=== PATIENT | male | born 1980 | race Caucasian/White ===

== ENCOUNTER 2024-01-16 04:12 | Emergency (ER) | payer OTHER, BC, SELFPAY ==
[2024-01-16 04:15] VITALS: BP 160/96; PULSE 89; TEMP 36.5; O2SAT 99; BMI 32.7
--- NOTE | 2024-01-16 04:21 | ECG_ITS ---
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
--- NOTE | 2024-01-16 04:29 | ED.CHESTPAI1 ---
HPI - Chest Pain General Chief Complaint: Chest Pain Stated Complaint: upper extremity pain right chest Time Seen by Provider: 01/16/24 04:24 History of Present Illness HPI narrative: presents complaining of chest pain. Chest pain left chest that worsens with use of the left arm. pain radiates into his back. No associated nausea. Feels short of breath when pain increases. Does not want to raise his left arm because the pain will increase. no fever or injury family history of CAD Related Data Home Medications ?Medication ?Instructions ?Recorded ?Confirmed alprazolam 0.25 mg tablet 0.25 mg PO anxiety 01/16/24 atorvastatin 40 mg tablet 40 mg PO DAILY 01/16/24 01/16/24 buprenorphine 8 mg-naloxone 2 mg tab sublingual 01/16/24 sublingual tablet dbbptkhk-cbqalpqpx-vdonxyepg 3.5 otic (ear) 01/16/24 mg/mL-10,000 unit/mL-1 % ear solution pantoprazole 20 mg tablet,delayed 20 mg PO Q12H 01/16/24 01/16/24 release sulfamethoxazole 800 tab 01/16/24 mg-trimethoprim 160 mg tablet trazodone 100 mg tablet 100 mg PO BEDTIME 01/16/24 01/16/24 Allergies Allergy/AdvReac Type Severity Reaction Status Date / Time amoxicillin Allergy Intermediate Verified 01/16/24 04:20 Review of Systems ROS Status of ROS 10 or more systems reviewed and unremarkable except as noted in history and below Exam Constitutional Vital Signs, click to edit/add: Last Vital Signs Temp 97.7 F 01/16/24 04:15 Pulse 89 01/16/24 04:15 Resp 22 H 01/16/24 04:15 BP 160/96 H 01/16/24 04:15 Pulse Ox 95 01/16/24 04:30 O2 Del Method Room Air 01/16/24 04:30 Common normals: average body habitus, oriented x3, no limitations, healthy appearing and well nourished [facility] Common normals: normocephalic and head/scalp atraumatic Chest Other: left midaxillary chest wall tenderness Respiratory Common normals: normal respiratory effort, no retractions, no use of accessory muscles and clear to auscultation bilaterally Cardio Common normals: regular rate, regular rhythm, S1 normal heart sound and S2 normal heart sound GI Common normals: Normal to inspection, nondistended, normoactive bowel sounds present, soft to palpation and non-tender Extremity Common normals: normal to inspection and full ROM Neuro Common normals: oriented x3, CN's II-XII intact bilaterally, moves all extremities and no focal motor deficits Psych Appearance: grossly normal Course Vital Signs Vital signs: Vital Signs Temperature 97.7 F 01/16/24 04:15 Pulse Rate 89 01/16/24 04:15 Respiratory Rate 22 H 01/16/24 04:15 Blood Pressure 160/96 H 01/16/24 04:15 Pulse Oximetry 99 01/16/24 04:15 Oxygen Delivery Method Room Air 01/16/24 04:15 Temperature 97.7 F 01/16/24 04:15 Pulse Rate 89 01/16/24 04:15 Respiratory Rate 22 H 01/16/24 04:15 Blood Pressure 160/96 H 01/16/24 04:15 Pulse Oximetry 95 01/16/24 04:30 Oxygen Delivery Method Room Air 01/16/24 04:30 MDM - Chest Pain MDM Narrative Medical decision making narrative: patient presents complaining of pain of his left midaxillary chest that radiates to his scapula. No dyspnea. Pain positional and aggravated by use of his arm. chest xray neg. troponin neg. EKG with incomplete RBBB. NSR. troponin neg. d-dimer elevated. Given Toradol which offered no relief. Order solumedrol and ativan. CTA chest pending. Care transferred to oncoming physician at change of shift Lab Data Labs: Lab Results 01/16/24 Range/Units 05:00 WBC 9.8 (4.0-11.0) 10^3/uL RBC 6.82 H (4.70-6.10) 10^6/uL Hgb 19.1 H (14.0-18.0) g/dL Hct 58.6 H (42.0-54.0) % MCV 85.9 (80.0-94.0) fL MCH 28.0 (25.9-34.0) pg MCHC 32.6 (29.9-35.2) g/dL RDW 17.6 H (11.0-15.0) % Plt Count 355 (150-450) 10^3/uL MPV 10.1 (9.5-13.5) fL Neut % (Auto) 72.5 (43.0-75.0) % Lymph % (Auto) 11.7 L (20.5-60.0) % [place] % (Auto) 5.1 (1.7-12.0) % Eos % (Auto) 7.1 H (0.9-7.0) % Baso % (Auto) 1.4 (0.2-2.0) % Neut # (Auto) 7.1 H (1.4-6.5) 10^3/uL Lymph # (Auto) 1.2 (1.2-3.8) 10^3/uL [place] # (Auto) 0.5 (0.3-0.8) 10^3/uL Eos # (Auto) 0.7 (0.0-0.7) 10^3/uL Baso # (Auto) 0.1 (0.0-0.1) 10^3/uL Abs Immat Gran (auto) 0.22 H (0.00-0.03) 10^3/uL Imm/Tot Granulo (auto) 2.2 H (0.0-0.5) % D-Dimer 0.67 H* (<=0.59) mg/L FEU Sodium 138 (136-145) mmol/L Potassium 4.7 (3.5-5.1) mmol/L Chloride 102 (98-107) mmol/L Carbon Dioxide 28.6 (21.0-32.0) mmol/L Anion Gap 12.1 BUN 9.0 (7.0-18.0) mg/dL Creatinine 1.32 H (0.70-1.30) mg/dL Est GFR ( Amer) >60 (>=60) Est GFR (Non-Af Amer) 60 (>=60) BUN/Creatinine Ratio 6.8 Glucose 97 (74-106) mg/dL Calcium 9.3 (8.5-10.1) mg/dL Troponin I High Sens 13.2 (4.0-76.1) pg/mL Imaging Data Chest x-ray: Radiologist's impression: ITS Impressions Chest X-Ray 01/16/24 04:32 IMPRESSION: No acute abnormality. Electronically authenticated by: YARON SCOTT Date: 01/16/2024 05:41 Discharge Plan Discharge Chief Complaint: Chest Pain Clinical Impression: Atypical chest pain Patient Disposition: Still a Patient Prescriptions / Home Meds: No Action atorvastatin 40 mg tablet 40 mg PO DAILY jmheyrxb-rqoeglary-RX 3.5-10,000-1 mg/mL-unit/mL-% solution OTIC (EAR) sulfamethoxazole-trimethoprim 800-160 mg tablet pantoprazole 20 mg tablet,delayed release (DR/EC) 20 mg PO Q12H alprazolam 0.25 mg tablet 0.25 mg PO trazodone 100 mg tablet 100 mg PO BEDTIME buprenorphine-naloxone 8-2 mg tablet, sublingual SUBLINGUAL Print Language: Com[place]an Referrals: Physician,Non-Staff, MD [Primary Care Provider] - 1 week
[2024-01-16 04:30] VITALS: O2SAT 95
--- NOTE | 2024-01-16 04:32 | XR_ITS ---
The [address] [address] Patient Name: LUIS CORRAL MRN: [id number] date: 1980 Sex: M Assigned Patient Location: ER Current Patient Location: ER Accession/Order Number: [id number] Exam Date: 01/16/2024 05:30 Report Date: 01/16/2024 05:41 At the request of: TRISHA REAL Procedure: XR chest 1V CLINICAL HISTORY: Chest pain COMPARISON: None FINDINGS: Portable AP view of the chest obtained. Cardiomediastinal silhouette is normal. Lungs are clear, no evidence of infiltrate, suspicious nodule, or mass. No evidence of significant pleural fluid on this portable projection. No acute bony abnormality. XR/XR chest 1V IMPRESSION: No acute abnormality. Electronically authenticated by: YARON SCOTT Date: 01/16/2024 05:41
[2024-01-16] MEDS: KETOROLAC TROMETHAMINE 30 MG/ML VIAL IVP (05:03)
[2024-01-16 05:20] LABS: Basophils Absolute Auto 0.1 10^3/uL (0.0-0.1); Basophils Percent Auto 1.4 % (0.2-2.0); Eosinophils Absolute Auto 0.7 10^3/uL (0.0-0.7); Eosinophils Percent Auto 7.1 % (0.9-7.0); Hematocrit 58.6 % (42.0-54.0); Hemoglobin 19.1 g/dL (14.0-18.0); Immature Granulocytes Abs Auto 0.22 10^3/uL (0.00-0.03); Immature Granulocytes Pct Auto 2.2 % (0.0-0.5); Lymphocytes Absolute Auto 1.2 10^3/uL (1.2-3.8); Lymphocytes Percent Auto 11.7 % (20.5-60.0); Mean Corpuscular HGB Conc 32.6 g/dL (29.9-35.2); Mean Corpuscular Volume 85.9 fL (80.0-94.0); Mean Platelet Volume 10.1 fL (9.5-13.5); Monocytes Absolute Auto 0.5 10^3/uL (0.3-0.8); Monocytes Percent Auto 5.1 % (1.7-12.0); Neutrophils Absolute Auto 7.1 10^3/uL (1.4-6.5); Neutrophils Percent Auto 72.5 % (43.0-75.0); Platelet Count 355 10^3/uL (150-450); Red Blood Count 6.82 10^6/uL (4.70-6.10); Red Cell Distribution Width 17.6 % (11.0-15.0); White Blood Count 9.8 10^3/uL (4.0-11.0)
--- NOTE | 2024-01-16 05:35 | PC.NURSE ---
Patient to ED with c/o left upper chest pain that radiates into upper back between shoulder blades. Pain started suddenly this morning while he was up brushing his teeth. 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 He did have some chest pains yesterday, but they were not severe. Pain today is 10/10. Pain increases when he moves, specifically when he lifts his arms.
[2024-01-16 05:37] LABS: Anion Gap 12.1; BUN Creatinine Ratio 6.8; Calcium 9.3 mg/dL (8.5-10.1); Carbon Dioxide 28.6 mmol/L (21.0-32.0); Chloride 102 mmol/L (98-107); Estimated GFR (African America >60 (>=60); Estimated GFR (Non-African Ame 60 (>=60); Glucose 97 mg/dL (74-106); Potassium 4.7 mmol/L (3.5-5.1); Sodium 138 mmol/L (136-145); Troponin I High Sensitivity 13.2 pg/mL (4.0-76.1)
[2024-01-16 05:53] LABS: D Dimer 0.67 mg/L FEU (<=0.59)
--- NOTE | 2024-01-16 05:59 | CT_ITS ---
[address] [address] Patient Name: LUIS CORRAL MRN: [id number] date: 1980 Sex: M Assigned Patient Location: ER Current Patient Location: ED.MAIN Accession/Order Number: [id number] Exam Date: 01/16/2024 06:39 Report Date: 01/16/2024 07:28 At the request of: TRISHA REAL Procedure: CT angio chest EXAMINATION: CT angio chest HISTORY: chest pain radiating into back COMPARISON: XR chest 01/16/2024 TECHNIQUE: Multi-planar CT images were created with IV contrast. Axial, Coronal, and Sagittal images. Dose reduction techniques were achieved by using automated exposure control and/or adjustment of mA and/or kV according to patient size and/or use of iterative reconstruction technique. 3-D reconstruction was performed on a separate workstation. FINDINGS: VASCULATURE: Suspect nonocclusive emboli within left lower lobe medial basilar segmental artery. LUNGS: No visible pulmonary disease. PLEURA: No mass, effusion, or pneumothorax. KIMBERLEE: No mass or adenopathy. MEDIASTINUM: No mass or adenopathy. CARDIAC: No enlargement, pericardial effusion, or pericardial thickening. AORTA: No aneurysm or dissection. CHEST WALL: No mass or axillary adenopathy. BONES: No bone lesion or fracture. LIMITED ABDOMEN: No suspicious findings. Limited images of the upper abdomen. OTHER: Negative. CT/CT angio chest IMPRESSION: 1. Suspect small nonocclusive pulmonary embolus within left lower lobe medial basilar segmental artery. There may be additional small emboli, or this could represent artifact, but I suspect this embolus to be real without additional significant emboli. Study is limited by significant metallic streak artifact caused by cardiac pacer leads, clips, and arms along patient's side rather than above the patient's head. Before patient is placed long-term on a blood thinner a follow-up CTA chest should be performed to confirm pulmonary emboli. 2. No pulmonary infiltrates, pneumothorax, pleural effusion. Electronically authenticated by: DYLAN RAZO Date: 01/16/2024 07:28
[2024-01-16] MEDS: METHYLPREDNISOLONE SOD SUCC PF 125 MG/2 ML VIAL IVP (06:13)
[2024-01-16] MEDS: LORAZEPAM 2 MG/ML 1 ML VIAL 1 MG IV (06:14)
--- NOTE | 2024-01-16 06:37 | PC.NURSE ---
Patient is medicated at this time. He is resting in bed with family at bedside. He is updated on order for CTA and why it was ordered. Patient explains that he has been having shortness of breath intermittently for the past few days, especially at night. He will wake up and feel like he cannot catch his breath.
[2024-01-16 06:38] VITALS: BP 161/84; PULSE 78; O2SAT 98
--- NOTE | 2024-01-16 08:01 | ED.CHESTPAI1 ---
HPI - Chest Pain General Chief Complaint: Chest Pain Stated Complaint: upper extremity pain right chest Time Seen by Provider: 01/16/24 04:24 History of Present Illness HPI narrative: 43-year-old male presented to the emergency department and was initially seen by Dr. Tamez and signed out to me after discussing the case with him thoroughly. Please see his full history and physical exam. Related Data Home Medications ?Medication ?Instructions ?Recorded ?Confirmed alprazolam 0.25 mg tablet 0.25 mg PO anxiety 01/16/24 atorvastatin 40 mg tablet 40 mg PO DAILY 01/16/24 01/16/24 buprenorphine 8 mg-naloxone 2 mg tab sublingual 01/16/24 sublingual tablet fdlojxgx-ohdbbulmy-fmslqfmsz 3.5 otic (ear) 01/16/24 mg/mL-10,000 unit/mL-1 % ear solution pantoprazole 20 mg tablet,delayed 20 mg PO Q12H 01/16/24 01/16/24 release sulfamethoxazole 800 tab 01/16/24 mg-trimethoprim 160 mg tablet trazodone 100 mg tablet 100 mg PO BEDTIME 01/16/24 01/16/24 Previous Rx's ?Medication ?Instructions ?Recorded apixaban 5 mg (74 tabs) tablets in 5 mg PO BID #74 ea 01/16/24 a dose pack ([place] DVT-PE Treat 30D Start) Allergies Allergy/AdvReac Type Severity Reaction Status Date / Time amoxicillin Allergy Intermediate Verified 01/16/24 04:20 Exam Constitutional Vital Signs, click to edit/add: Last Vital Signs Temp 97.7 F 01/16/24 04:15 Pulse 78 01/16/24 06:38 Resp 18 01/16/24 06:38 BP 161/84 H 01/16/24 06:38 Pulse Ox 98 01/16/24 06:38 O2 Del Method Room Air 01/16/24 04:30 Course Vital Signs Vital signs: Vital Signs Temperature 97.7 F 01/16/24 04:15 Pulse Rate 89 01/16/24 04:15 Respiratory Rate 22 H 01/16/24 04:15 Blood Pressure 160/96 H 01/16/24 04:15 Pulse Oximetry 99 01/16/24 04:15 Oxygen Delivery Method Room Air 01/16/24 04:15 Temperature 97.7 F 01/16/24 04:15 Pulse Rate 78 01/16/24 06:38 Respiratory Rate 18 01/16/24 06:38 Blood Pressure 161/84 H 01/16/24 06:38 Pulse Oximetry 98 01/16/24 06:38 Oxygen Delivery Method Room Air 01/16/24 04:30 MDM - Chest Pain MDM Narrative Medical decision making narrative: The D-dimer was elevated and a CAT scan of the chest was ordered. This shows a small distal nonocclusive pulmonary embolism. Case is discussed with Dr. Rehman we have agreed that the patient does not need to be admitted to the hospital but will be placed on Eliquis and follow-up with him in the office. Findings are discussed thoroughly with the patient and his and the importance of taking the blood thinner was discussed thoroughly. He was instructed not to take anti-inflammatories such as Motrin, Advil, ibuprofen. Treatment diagnosis and follow-up were discussed thoroughly. Differential Diagnosis Differential diagnosis: Likely pneumothorax, unstable angina pectoris, atypical chest pain, st elevation myocardial infarction, chest pain and other (Pulmonary embolism) Lab Data Attestation: I reviewed the patient's lab results. Labs: Lab Results 01/16/24 Range/Units 05:00 WBC 9.8 (4.0-11.0) 10^3/uL RBC 6.82 H (4.70-6.10) 10^6/uL Hgb 19.1 H (14.0-18.0) g/dL Hct 58.6 H (42.0-54.0) % MCV 85.9 (80.0-94.0) fL MCH 28.0 (25.9-34.0) pg MCHC 32.6 (29.9-35.2) g/dL RDW 17.6 H (11.0-15.0) % Plt Count 355 (150-450) 10^3/uL MPV 10.1 (9.5-13.5) fL Neut % (Auto) 72.5 (43.0-75.0) % Lymph % (Auto) 11.7 L (20.5-60.0) % [place] % (Auto) 5.1 (1.7-12.0) % Eos % (Auto) 7.1 H (0.9-7.0) % Baso % (Auto) 1.4 (0.2-2.0) % Neut # (Auto) 7.1 H (1.4-6.5) 10^3/uL Lymph # (Auto) 1.2 (1.2-3.8) 10^3/uL [place] # (Auto) 0.5 (0.3-0.8) 10^3/uL Eos # (Auto) 0.7 (0.0-0.7) 10^3/uL Baso # (Auto) 0.1 (0.0-0.1) 10^3/uL Abs Immat Gran (auto) 0.22 H (0.00-0.03) 10^3/uL Imm/Tot Granulo (auto) 2.2 H (0.0-0.5) % D-Dimer 0.67 H* (<=0.59) mg/L FEU Sodium 138 (136-145) mmol/L Potassium 4.7 (3.5-5.1) mmol/L Chloride 102 (98-107) mmol/L Carbon Dioxide 28.6 (21.0-32.0) mmol/L Anion Gap 12.1 BUN 9.0 (7.0-18.0) mg/dL Creatinine 1.32 H (0.70-1.30) mg/dL Est GFR ( Amer) >60 (>=60) Est GFR (Non-Af Amer) 60 (>=60) BUN/Creatinine Ratio 6.8 Glucose 97 (74-106) mg/dL Calcium 9.3 (8.5-10.1) mg/dL Troponin I High Sens 13.2 (4.0-76.1) pg/mL Imaging Data CT scan - chest: Radiologist's impression: ITS Impressions Chest X-Ray 01/16/24 04:32 IMPRESSION: No acute abnormality. Electronically authenticated by: YARON SCOTT Date: 01/16/2024 05:41 Chest CTA 01/16/24 05:59 IMPRESSION: 1. Suspect small nonocclusive pulmonary embolus within left lower lobe medial basilar segmental artery. There may be additional small emboli, or this could represent artifact, but I suspect this embolus to be real without additional significant emboli. Study is limited by significant metallic streak artifact caused by cardiac pacer leads, clips, and arms along patient's side rather than above the patient's head. Before patient is placed long-term on a blood thinner a follow-up CTA chest should be performed to confirm pulmonary emboli. 2. No pulmonary infiltrates, pneumothorax, pleural effusion. Electronically authenticated by: DYLAN RAZO Date: 01/16/2024 07:28 Heart Score History: Slightly/Non-Suspicious ECG: Normal Age: <45 years Risk Factors: 1 or 2 Risk Factors Troponin: <Normal Limit Total Heart Score Recommendations & Risks:: 1 Discharge Plan Discharge Stand Alone Forms: Portal Instructions Chief Complaint: Chest Pain Clinical Impression: Pulmonary embolism Patient Disposition: Home, Self-Care Time of Disposition Decision: 07:59 Condition: Good Mode of Transportation: Private Vehicle Prescriptions / Home Meds: New Eliquis DVT-PE Treat 30D Start 5 mg (74 tabs) tablets,dose pack 5 mg PO BID Qty: 74 0RF No Action atorvastatin 40 mg tablet 40 mg PO DAILY neeiatfd-ndiebbtkr-HT 3.5-10,000-1 mg/mL-unit/mL-% solution OTIC (EAR) sulfamethoxazole-trimethoprim 800-160 mg tablet pantoprazole 20 mg tablet,delayed release (DR/EC) 20 mg PO Q12H alprazolam 0.25 mg tablet 0.25 mg PO trazodone 100 mg tablet 100 mg PO BEDTIME buprenorphine-naloxone 8-2 mg tablet, sublingual SUBLINGUAL Print Language: Kyrgyz Instructions: Pulmonary Embolism (ED), Blood Thinners (ED) Additional Instructions: Follow-up with Dr. Rehman, call today to make an appointment Referrals: Stuart Rehman DO [Physician] - 1 week Physician,Non-Staff, MD [Primary Care Provider] - 1 week
[2024-01-16] MEDS: APIXABAN 5 MG TABLET 10 MG PO (08:13)
[2024-01-16 08:16] VITALS: PULSE 88; O2SAT 98
== END 2024-01-16 08:18 | disposition home or self-care (01) ==
PROVIDERS: Internal Medicine; Emergency Provider Emergency Medicine
DX: I26.99 Other pulmonary embolism without acute cor pulmonale (principal); Z79.899 Other long term (current) drug therapy
CPT/HCPCS: 36415; 71045; 71275; 80048; 84484; 85025; 85378; 93005; 96374; 96375; 99285; J2919; Q9967

== ENCOUNTER 2024-02-15 16:14 | Outpatient (OUT) | payer OTHER, BC, SELFPAY ==
--- NOTE | 2024-02-15 16:22 | US_ITS ---
[address] [address] Patient Name: LUIS CORRAL MRN: [id number] date: 1980 Sex: M Assigned Patient Location: US Current Patient Location: Accession/Order Number: [id number] Exam Date: 02/15/2024 16:28 Report Date: 02/16/2024 07:01 At the request of: ZINA REHMAN Procedure: US venous doppler LE RT EXAM: US venous doppler LE RT HISTORY: other pulmonary embolism I2699, soft tissue disorder M7989 COMPARISON: None. TECHNIQUE: Grayscale, color and Doppler FINDINGS: Region: Right leg Thrombus: No deep vein thrombus. Echogenic thrombus identified in the superficial vein corresponding to the patient's palpable abnormality in the area of pain Flow: Absent flow corresponding to thrombus Compressibility: Noncompressibility corresponding to thrombus Augmentation: Normal augmentation of the deep system Other: Findings relayed to Dr. Rehman by the technologist at the time of exam US/US venous doppler LE RT IMPRESSION: Occlusive superficial vein thrombus corresponding to the patient's palpable lump No deep vein thrombus Electronically authenticated by: ELINA AVILA Date: 02/16/2024 07:01
== END 2024-02-15 16:15 | disposition home or self-care (01) ==
LOC: US 16:15
PROVIDERS: Visit Provider Internal Medicine
DX: I26.99 Other pulmonary embolism without acute cor pulmonale (principal); M79.89 Other specified soft tissue disorders; I82.811 Embolism and thrombosis of superficial veins of right lower extremity
CPT/HCPCS: 93971

== ENCOUNTER 2024-10-31 12:14 | Emergency (ER) | payer OTHER, BC, SELFPAY ==
[2024-10-31 12:25] VITALS: PULSE 78
[2024-10-31 12:26] VITALS: BP 176/97; PULSE 90; TEMP 36.7; O2SAT 98; BMI 32.7
--- NOTE | 2024-10-31 12:40 | US_ITS ---
[address] [address] Patient Name: LUIS CORRAL MRN: [id number] date: 1980 Sex: M Assigned Patient Location: ER Current Patient Location: ER Accession/Order Number: [id number] Exam Date: 10/31/2024 12:41 Report Date: 10/31/2024 14:39 At the request of: HANNAH TERRY Procedure: US venous doppler LE RT EXAM: US venous doppler LE RT HISTORY: thigh swelling COMPARISON: 02/15/2024 TECHNIQUE: Grayscale, color and Doppler FINDINGS: Region: Right leg Thrombus: None Flow: Normal Augmentation: Normal Compressibility: Normal Other: Multiple enlarged right inguinal lymph nodes the largest measuring 2.3 x 1.5 x 1.2 cm. Identified along the lateral thigh is a 15.7 x 6.8 x 3.8 cm area of heterogeneous hypoechogenicity small amount of color flow is observed US/US venous doppler LE RT IMPRESSION: No deep or superficial vein thrombus in the right thigh 15.7 cm lateral thigh mass, indeterminate, with right inguinal lymphadenopathy. CT or MRI without and with contrast is recommended for further characterization Electronically authenticated by: ELINA AVILA Date: 10/31/2024 14:39
[2024-10-31 13:04] LABS: Basophils Absolute Auto 0.2 10^3/uL (0.0-0.1); Eosinophils Absolute Auto 0.3 10^3/uL (0.0-0.7); Eosinophils Percent Auto 1.9 % (0.9-7.0); Hematocrit 50.9 % (42.0-54.0); Hemoglobin 16.8 g/dL (14.0-18.0); Immature Granulocytes Abs Auto 0.44 10^3/uL (0.00-0.03); Immature Granulocytes Pct Auto 2.5 % (0.0-0.5); Lymphocytes Absolute Auto 1.2 10^3/uL (1.2-3.8); Lymphocytes Percent Auto 6.5 % (20.5-60.0); Mean Corpuscular Hemoglobin 28.5 pg (25.9-34.0); Mean Corpuscular Volume 86.3 fL (80.0-94.0); Mean Platelet Volume 9.7 fL (9.5-13.5); Monocytes Absolute Auto 1.1 10^3/uL (0.3-0.8); Monocytes Percent Auto 6.3 % (1.7-12.0); Neutrophils Absolute Auto 14.4 10^3/uL (1.4-6.5); Neutrophils Percent Auto 81.8 % (43.0-75.0); Platelet Count 440 10^3/uL (150-450); White Blood Count 17.6 10^3/uL (4.0-11.0)
[2024-10-31 13:19] LABS: Partial Thromboplastin Time 26.1 sec (22.3-36.2)
[2024-10-31 13:20] LABS: Alanine Aminotransferase 81 U/L (16-63); Albumin Globulin Ratio 0.9; Albumin Level 3.3 g/dL (3.4-5.0); Alkaline Phosphatase 57 U/L (46-116); Anion Gap 11.4; Aspartate Amino Transferase 47 U/L (15-37); BUN Creatinine Ratio 6.5; Bilirubin Total 0.7 mg/dL (0.2-1.0); Carbon Dioxide 29.1 mmol/L (21.0-32.0); Chloride 102 mmol/L (98-107); Estimated GFR (African America >60 (>=60 mL/min/1.73m^2); Estimated GFR (Non-African Ame 56 (>=60 mL/min/1.73m^2); Globulin 3.7 g/dL; Glucose 87 mg/dL (74-106); Potassium 4.5 mmol/L (3.5-5.1); Sodium 138 mmol/L (136-145)
[2024-10-31 13:21] LABS: INR 1.09; Prothrombin Time 11.5 sec (9.0-11.6)
[2024-10-31] MEDS: KETOROLAC TROMETHAMINE 30 MG/ML VIAL 15 MG IVP (13:38)
[2024-10-31 13:48] VITALS: BP 164/86
[2024-10-31 13:54] LABS: Lactate/Lactic Acid 1.1 mmol/L (0.4-2.0)
--- NOTE | 2024-10-31 14:44 | CT_ITS ---
[address] [address] Patient Name: LUIS CORRAL MRN: [id number] date: 1980 Sex: M Assigned Patient Location: ER Current Patient Location: ER Accession/Order Number: [id number] Exam Date: 10/31/2024 15:00 Report Date: 10/31/2024 16:00 At the request of: HANNAH TERRY Procedure: CT femur RT wo/w con EXAM: CT femur RT wo/w con HISTORY: right thigh mass after testosterone injection right thigh mass with redness and warmth after testosterone injection 5 days ago. COMPARISON: Right lower extremity venous study 10/31/2024. TECHNIQUE: Multiple axial CT images of the right thigh was performed with and without IV contrast. 2-D coronal and sagittal reformations were submitted for review. Dose reduction techniques were achieved by using automated exposure control and/or adjustment of mA and/or kV according to patient size and/or use of iterative reconstruction technique. FINDINGS: There is intramuscular and fascial edema along the vastus lateralis, vastus intermedius and rectus femoris muscles along the anterior compartment of the right thigh. Intermediate density fluid collection without enhancement along the vastus lateralis muscle at the level of the proximal femoral diaphysis measuring 9.4 x 3.8 cm in cross-section extending 14.1 cm in craniocaudal dimension. No soft tissue gas. No radiopaque foreign body. A few prominent right inguinal lymph nodes. Urinary bladder and prostate gland appear unremarkable. Mild marginal spur involving the right hip. Right femoral head appears smooth. Right femur appears intact. No bony erosive/destructive changes. Alignment at the right knee joint appears preserved. No sizable knee joint effusion. CT/CT femur RT wo/w con IMPRESSION: 1. There is an intramuscular hematoma in the vastus lateralis muscle measuring up to 14.1 cm. Adjacent fascial edema is noted. Superimposed myositis/cellulitis is not excluded. No soft tissue gas. 2. No acute fracture. No CT signs of osteomyelitis. Electronically authenticated by: LETTY MARTÍNEZ Date: 10/31/2024 16:00
[2024-10-31] MEDS: DOXYCYCLINE HYCLATE 100 MG in 0.9 % SODIUM CHLORIDE 100 ML IV (15:15)
--- NOTE | 2024-11-01 07:08 | ED_ITS ---
HPI HPI - Extremity Injury (Lower) General Chief Complaint: Extremity Injury, Lower Stated Complaint: LOWER EXTREMITY SWELLING Time Seen by Provider: 10/31/24 12:40 Source: patient Mode of arrival: walk-in History of Present Illness HPI Narrative: The patient is a 44-year-old male coming to the ER after he had a right thigh injection of testosterone almost 5 days ago. Patient mentioned after the injection he started having swelling in the area and pain. According to him he usually gives himself testosterone injection with the same kind of medication and the same brand with the same dose. Patient have no fever no chills no other complaint of redness hotness or any other concerns No pain in his feet or any numbness or tingling No history of a fall or trauma Related Data Home Medications ?Medication ?Instructions ?Recorded ?Confirmed atorvastatin 40 mg tablet 40 mg PO DAILY 01/16/24 10/31/24 buprenorphine 8 mg-naloxone 2 mg tab sublingual 01/16/24 sublingual tablet pantoprazole 20 mg tablet,delayed 20 mg PO Q12H 01/16/24 10/31/24 release trazodone 100 mg tablet 100 mg PO BEDTIME 01/16/24 10/31/24 Previous Rx's ?Medication ?Instructions ?Recorded apixaban 5 mg (74 tabs) tablets in 5 mg PO BID #74 ea 01/16/24 a dose pack (Eliquis DVT-PE Treat 30D Start) acetaminophen 650 mg 650 mg PO Q8H PRN pain #20 tabs 10/31/24 tablet,extended release (Tylenol 8 Hour) doxycycline hyclate 100 mg capsule 100 mg PO BID 7 days #14 caps 10/31/24 methylprednisolone 4 mg tablets in 4 mg PO DAILY #21 ea 10/31/24 a dose pack (Medrol (Sav)) Allergies Allergy/AdvReac Type Severity Reaction Status Date / Time amoxicillin Allergy Intermediate Unknown Verified 10/31/24 12:26 Opioid HPI Opioid Management Most Recent Pain and Opioid Data: No Data to Display Review of Systems ROS Status of ROS 10 or more systems reviewed and unremark able except as noted in history and below PFSH PFSH Social History Little interest or pleasure in doing things: not at all Feeling down, depressed, or hopeless: not at all Exam Narrative Exam Narrative: Nurses notes and vital signs reviewed and patient is not hypoxic. Right lower extremity: At the thigh area mostly at the lateral aspect of the upper half of the thigh the patient have an area of induration no redness no hotness with mild tenderness on palpation he still have a good femoral pulse as well as good anterior tibial pulse and no vascular injury detected on exam General: Well-appearing and in no apparent distress. Skin: Warm, dry, no pallor noted. No rash. Head: Normocephalic, atraumatic. Neck: Supple, non-tender. Eye: Pupils are equal, round and EOMI. No scleral icterus. Ears, Nose, Mouth, and Throat: TM are clear, no nasal mucosal hypertrophy. Oral mucosa is moist, no posterior oropharynx erythema, uvula is mid-line Cardiovascular: Regular Rate and Rhythm without murmur, gallop or rub. Respiratory: No accessory muscle use or respiratory distress. Lungs are clear to auscultation, no wheezing, rales or rhonchi Chest Wall: no tenderness Back: No midline thoracic or lumbar vertebral tenderness. No CVA tenderness GI: Abdomen is soft, non-distended. Normal bowel sounds. No masses appreciated. No tenderness to palpation. No rebound, guarding, or rigidity noted. Neurological: A&O x4. No cranial nerve dysfunction observed. No truncal ataxia. Moves all extremities. Sensation intact. Psychiatric: Cooperative and interactive. Normal mood and affect. Constitutional Vital Signs, click to edit/add: Last Vital Signs Temp 98.1 F 10/31/24 12:26 Pulse 90 10/31/24 12:26 Resp 16 10/31/24 12:26 BP 164/86 H 10/31/24 13:48 Pulse Ox 98 10/31/24 12:26 O2 Del Method Room Air 10/31/24 12:26 Course Vital Signs Vital signs: Vital Signs Pulse Rate 78 10/31/24 12:25 Temperature 98.1 F 10/31/24 12:26 Pulse Rate 90 10/31/24 12:26 Respiratory Rate 16 10/31/24 12:26 Blood Pressure 164/86 H 10/31/24 13:48 Pulse Oximetry 98 10/31/24 12:26 Oxygen Delivery Method Room Air 10/31/24 12:26 MDM - Extremity Injury (Lower) MDM Narrative Medical decision making narrative: 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 And the injection mostly causing hematoma his ultrasound showed no DVT and CT of the lower extremity with contrast showed that the patient have a hematoma With the patient leukocytosis on blood workup the patient will be covered with doxycycline for possible cellulitis as well he was given instruction to rest hold his Eliquis at least for 2 days especially with his history of having the DVT 9 months ago During this time the patient is keeping an eye monitoring his symptoms case of any redness hotness or any chest pain or fever The patient is to follow up with primary care physician in next 2-3 days or to return to the emergency department should any of the signs or symptoms worsen or new symptoms develop. The patient agrees with the following Diagnosis and Treatment plan and the patient will be discharged home. Lab Data Labs: Lab Results 10/31/24 Range/Units 12:50 WBC 17.6 H (4.0-11.0) 10^3/uL RBC 5.90 (4.70-6.10) 10^6/uL Hgb 16.8 (14.0-18.0) g/dL Hct 50.9 (42.0-54.0) % MCV 86.3 (80.0-94.0) fL MCH 28.5 (25.9-34.0) pg MCHC 33.0 (29.9-35.2) g/dL RDW 15.0 (11.0-15.0) % Plt Count 440 (150-450) 10^3/uL MPV 9.7 (9.5-13.5) fL Neut % (Auto) 81.8 H (43.0-75.0) % Lymph % (Auto) 6.5 L (20.5-60.0) % [place] % (Auto) 6.3 (1.7-12.0) % Eos % (Auto) 1.9 (0.9-7.0) % Baso % (Auto) 1.0 (0.2-2.0) % Neut # (Auto) 14.4 H (1.4-6.5) 10^3/uL Lymph # (Auto) 1.2 (1.2-3.8) 10^3/uL [place] # (Auto) 1.1 H (0.3-0.8) 10^3/uL Eos # (Auto) 0.3 (0.0-0.7) 10^3/uL Baso # (Auto) 0.2 H (0.0-0.1) 10^3/uL Abs Immat Gran (auto) 0.44 H (0.00-0.03) 10^3/uL Imm/Tot Granulo (auto) 2.5 H (0.0-0.5) % PT 11.5 (9.0-11.6) sec INR 1.09 APTT 26.1 (22.3-36.2) sec Sodium 138 (136-145) mmol/L Potassium 4.5 (3.5-5.1) mmol/L Chloride 102 (98-107) mmol/L Carbon Dioxide 29.1 (21.0-32.0) mmol/L Anion Gap 11.4 BUN 9.0 (7.0-18.0) mg/dL Creatinine 1.39 H (0.70-1.30) mg/dL Est GFR ( Amer) >60 (>=60 mL/min/1.73m^2) Est GFR (Non-Af Amer) 56 L (>=60 mL/min/1.73m^2) BUN/Creatinine Ratio 6.5 Glucose 87 (74-106) mg/dL Lactate 1.1 (0.4-2.0) mmol/L Calcium 9.0 (8.5-10.1) mg/dL Total Bilirubin 0.7 (0.2-1.0) mg/dL AST 47 H (15-37) U/L ALT 81 H (16-63) U/L Alkaline Phosphatase 57 (46-116) U/L Total Protein 7.0 (6.4-8.2) g/dL Albumin 3.3 L (3.4-5.0) g/dL Globulin 3.7 g/dL Albumin/Globulin Ratio 0.9 Discharge Plan Discharge Chief Complaint: Extremity Injury, Lower Clinical Impression: Hematoma of right thigh, Cellulitis Patient Disposition: Home, Self-Care Time of Disposition Decision: 16:51 Condition: Good Mode of Transportation: Private Vehicle Prescriptions / Home Meds: New doxycycline hyclate 100 mg capsule 100 mg PO BID 7 Days Qty: 14 0RF methylprednisolone [Medrol (Sav)] 4 mg tablets,dose pack 4 mg PO DAILY Qty: 21 0RF Rx Instructions: please as per dose Sav instruction acetaminophen [Tylenol 8 Hour] 650 mg tablet extended release 650 mg PO Q8H PRN (Reason: pain ) Qty: 20 0RF No Action atorvastatin 40 mg tablet 40 mg PO DAILY pantoprazole 20 mg tablet,delayed release (DR/EC) 20 mg PO Q12H trazodone 100 mg tablet 100 mg PO BEDTIME buprenorphine-naloxone 8-2 mg tablet, sublingual SUBLINGUAL Eliquis DVT-PE Treat 30D Start 5 mg (74 tabs) tablets,dose pack 5 mg PO BID Qty: 74 0RF Print Language: Persian Instructions: Cellulitis (ED), Contusion in Adults (ED) Referrals: Thalia Baker APRN [Primary Care Provider] - 1 week Discharge Date/Time: 10/31/24 16:55
== END 2024-10-31 16:55 | disposition home or self-care (01) ==
PROVIDERS: Emergency Provider Emergency Medicine; PCP Nurse Practitioner Family
DX: M79.81 Nontraumatic hematoma of soft tissue (principal); L03.115 Cellulitis of right lower limb; Z86.718 Personal history of other venous thrombosis and embolism; Z79.01 Long term (current) use of anticoagulants
CPT/HCPCS: 36415; 73702; 80053; 83605; 85025; 85610; 85730; 93971; 96365; 96375; 99285; J1885; Q9967